=== PATIENT | female | born 1945 | race Caucasian/White ===

== ENCOUNTER 2022-09-11 12:45 | Outpatient (CLI) | payer MEDICARE, SELFPAY ==
[2022-09-11 13:20] LABS: Basophils Percent Auto 0.2 % (0.2-1.2); Eosinophils Percent Auto 0.7 % (0-4.4); Hematocrit 40.9 % (37.0-47.0); Hemoglobin 13.6 g/dL (12.0-15.0); Immature Granulocyte Absolute 0.01 K/mm3 (0.00-0.031); Immature Granulocyte Percent A 0.2 % (0-0.5); Lymphocytes Absolute Auto 1.17 K/mm3 (0.9-3.2); Lymphocytes Percent Auto 25.9 % (18.3-44.2); Mean Corpuscular HGB Conc 33.3 g/dl (32-36); Mean Corpuscular Hemoglobin 29.2 pg (26-34); Mean Corpuscular Volume 87.8 fl (80-100); Mean Platelet Volume 9.3 fl (7.4-10.4); Monocytes Absolute Auto 0.4 K/mm3 (0.1-0.6); Monocytes Percent Auto 8.6 % (2.6-8.5); Neutrophils Absolute Auto 2.9 K/mm3 (1.3-6.7); Neutrophils Percent Auto 64.4 % (45.5-73.1); Platelet Count Result 223 k/mm3 (150-375); Red Blood Count 4.66 M/mm3 (4.2-5.4); Red Cell Distribution Width 11.9 % (11.5-14.5); White Blood Count 4.5 K/mm3 (4.5-10.0)
[2022-09-11 13:38] LABS: Alanine Aminotransferase 21 U/L (6-35); Albumin Level 4.3 g/dL (3.5-5.1); Alkaline Phosphatase 111 U/L (38-126); Anion Gap 4 mmol/L (8-16); Aspartate Amino Transferase 29 U/L (14-36); Bilirubin,Total 1.6 mg/dL (0.2-1.3); Blood Urea Nitrogen 23 mg/dL (7-17); Calcium 8.8 mg/dL (8.4-10.2); Carbon Dioxide 31 mmol/L (22-30); Chloride 105 mmol/L (98-107); Cholesterol 221 mg/dL (0-200); Estimated Glomerular Filt Rate > 60; Glucose 100 mg/dL (65-110); HDL Direct 62 mg/dL; Potassium 3.9 mmol/L (3.4-5.0); Sodium 140 mmol/L (137-145); Triglycerides 80 mg/dL (<150)
[2022-09-11 13:42] LABS: Hemoglobin A1C 5.1 % (<5.7)
[2022-09-11 13:49] LABS: LDL Cholesterol Direct 121 mg/dL
[2022-09-11 14:15] LABS: Thyroid Stimulating Hormone Reflex 0.051 uIU/mL (0.465-4.68)
[2022-09-11 15:06] LABS: Free T4 Free Thyroxine Reflex 2.14 ng/dL (0.78-2.19)
[2022-09-11 15:55] LABS: Total Triiodothyronine (T3) 1.04 NG/ML (0.97-1.69)
== END 2022-09-11 12:46 | disposition home or self-care (01) ==
LOC: ANHLAB 12:50
PROVIDERS: PCP Family Medicine; Visit Provider Internal Medicine
DX: I48.91 Unspecified atrial fibrillation (principal); R07.9 Chest pain, unspecified; R79.9 Abnormal finding of blood chemistry, unspecified
CPT/HCPCS: 36415; 80053; 80061; 83036; 84439; 84443; 84480; 85025

== ENCOUNTER 2022-09-16 11:46 | Outpatient (CLI) | payer MEDICARE, SELFPAY ==
--- NOTE | 2022-09-16 12:10 | ECHO_ITS ---
Patient Info Name: Mariluz Wilkes Age: 77 years : 1945 Gender: Female Ht: 67 in Wt: 230 lbs BSA: 2.26 m2 HR: 75 bpm BP: 147 / 74 mmHg Heart Rhythm: Sinus Rhythm Technical Quality: Good Exam Date: 09/16/2022 12:38 PM Exam Location: [facility] Pulmonary Patient Status: Outpatient Admit Date: 09/16/2022 Staff Ordering Physician: Rickey Barros MD Directory Operator: Martha Boateng RDCS Attending Provider: Rickey Barros MD Referring Physician: Fiorella INFANTE; Exam Type: CA echo doppler color flow Study Info Indications R01.1 - Cardiac murmur, unspecified Complete two-dimensional, color flow and Doppler transthoracic echocardiogram is performed. Summary 1. Complete two-dimensional, color flow and Doppler transthoracic echocardiogram is performed. 2. Left ventricular chamber dimension is normal. 3. Left ventricular systolic function is normal, estimated at 65-70%. 4. Right ventricular chamber dimension is mildly enlarged. 5. Right ventricular systolic function is normal. 6. Left atrial chamber dimension is moderately enlarged. 7. Right atrial chamber dimension is mildly enlarged. 8. There is mild aortic valve sclerosis. 9. There is mild mitral valve regurgitation. 10. There is mild tricuspid valve regurgitation. Left Ventricle Left ventricular chamber dimension is normal. Left ventricular systolic function is normal, estimated at 65-70%. There is no increased left ventricular wall thickness. Right Ventricle Right ventricular chamber dimension is mildly enlarged. Right ventricular systolic function is normal. Left Atria Left atrial chamber dimension is moderately enlarged. Right Atria Right atrial chamber dimension is mildly enlarged. Atrial Septum Intact interatrial septum visualized by color flow imaging. Aortic Valve The aortic valve is probable trileaflet. There is mild aortic valve sclerosis. There is no aortic valve stenosis. There is trace aortic valve regurgitation. Pulmonic Valve The pulmonic valve is normal. Mitral Valve The mitral valve has normal leaflets. There is no mitral valve stenosis. There is mild mitral valve regurgitation. Tricuspid Valve There is no significant tricuspid valve stenosis. There is mild tricuspid valve regurgitation. Pericardium/Pleural The pericardium appears normal. There is no pericardial effusion. Inferior Vena Cava Normal inferior vena cava with >50% collapse upon inspiration consistent with normal right atrial pressure, 3 mmHg. Aorta The aortic root size at the sinus of Valsalva is normal. Left Ventricular Outflow Tract Name Value Normal LVOT 2D LVOT Diameter 2.0 cm LVOT Doppler LVOT Peak Gradient 6 mmHg LVOT Mean Gradient 4 mmHg LVOT VTI 31 cm LVOT VTI/AV VTI Ratio 0.8 LVOT Stroke Volume 94 ml LVOT CO 17.5 l/min LVOT CI 7.7 l/min/m2 Pulmonic Valve
== END 2022-09-16 11:47 | disposition home or self-care (01) ==
LOC: ANHCARD 11:48
PROVIDERS: PCP Family Medicine; Visit Provider Family Medicine
DX: R01.1 Cardiac murmur, unspecified (principal); I34.0 Nonrheumatic mitral (valve) insufficiency; I35.1 Nonrheumatic aortic (valve) insufficiency; I36.1 Nonrheumatic tricuspid (valve) insufficiency
CPT/HCPCS: 93306

== ENCOUNTER 2023-01-01 15:10 | Outpatient (CLI) | payer MEDICARE, SELFPAY ==
--- NOTE | ~2023-01-01 | MM_ITS ---
EXAMINATION: MM screening patricia BI w carlos HISTORY: Screening mammogram TECHNIQUE: Craniocaudal and mediolateral oblique 3-D tomosynthesis images were obtained and synthetic 2-D images were generated. CAD analysis was submitted and interpreted. COMPARISON: No prior mammogram is available for comparison at this institution. BREAST PARENCHYMAL COMPOSITION: The breasts are almost entirely fatty. FINDINGS: RIGHT BREAST: No suspicious mass, calcification, or architectural distortion are identified to sugges t malignancy. LEFT BREAST: There is possible architectural distortion in the middle third of the upper breast. IMPRESSION: 1. Possible left breast architectural distortion. 2. Additional mammographic views and possible breast ultrasound are recommended. BI-RADS Category 0: Incomplete: Needs additional imaging evaluation. Reviewed, dictated and finalized at location A. IMPRESSION: 1. Possible left breast architectural distortion. 2. Additional mammographic views and possible breast ultrasound are recommended . BI-RADS Category 0: Incomplete: Needs additional imaging evaluation.
== END 2023-01-01 15:11 | disposition home or self-care (01) ==
LOC: ANHIMG 15:15
PROVIDERS: PCP Family Medicine; Visit Provider Family Medicine
DX: Z12.31 Encounter for screening mammogram for malignant neoplasm of breast (principal); R92.8 Other abnormal and inconclusive findings on diagnostic imaging of breast
CPT/HCPCS: 77063; 77067

== ENCOUNTER 2023-08-31 11:10 | Outpatient (CLI) | payer MEDICARE, SELFPAY ==
[2023-08-31 11:53] LABS: Eosinophils Percent Auto 1.4 % (0-4.4); Hematocrit 42.6 % (37.0-47.0); Hemoglobin 13.9 g/dL (12.0-15.0); Immature Granulocyte Absolute 0.01 K/mm3 (0.00-0.031); Immature Granulocyte Percent A 0.3 % (0-0.5); Lymphocytes Absolute Auto 0.73 K/mm3 (0.9-3.2); Lymphocytes Percent Auto 24.8 % (18.3-44.2); Mean Corpuscular HGB Conc 32.6 g/dl (32-36); Mean Corpuscular Hemoglobin 29.8 pg (26-34); Mean Corpuscular Volume 91.2 fl (80-100); Mean Platelet Volume 9.8 fl (7.4-10.4); Monocytes Absolute Auto 0.3 K/mm3 (0.1-0.6); Monocytes Percent Auto 10.9 % (2.6-8.5); Neutrophils Absolute Auto 1.8 K/mm3 (1.3-6.7); Neutrophils Percent Auto 62.6 % (45.5-73.1); Platelet Count Result 186 k/mm3 (150-375); Red Blood Count 4.67 M/mm3 (4.2-5.4); Red Cell Distribution Width 12.1 % (11.5-14.5); White Blood Count 2.9 K/mm3 (4.5-10.0)
[2023-08-31 12:17] LABS: LDL Cholesterol Direct 133 mg/dL
[2023-08-31 12:18] LABS: Alanine Aminotransferase 15 U/L (6-35); Albumin Level 4.2 g/dL (3.5-5.1); Alkaline Phosphatase 102 U/L (38-126); Anion Gap 3 mmol/L (8-16); Aspartate Amino Transferase 28 U/L (14-36); Bilirubin,Total 1.4 mg/dL (0.2-1.3); Blood Urea Nitrogen 24 mg/dL (7-17); Carbon Dioxide 32 mmol/L (22-30); Chloride 105 mmol/L (98-107); Cholesterol 238 mg/dL (0-200); Estimated Glomerular Filt Rate > 60; Glucose 98 mg/dL (65-110); HDL Direct 65 mg/dL; Sodium 140 mmol/L (137-145); Triglycerides 94 mg/dL (<150)
[2023-08-31 12:21] LABS: Hemoglobin A1C 5.3 % (<5.7); Potassium 3.8 mmol/L (3.4-5.0)
[2023-08-31 12:22] LABS: Iron 84 ug/dL (37-170)
[2023-08-31 12:36] LABS: Percent Iron Saturation 27 % (20-50)
[2023-08-31 12:45] LABS: Free T4 Free Thyroxine 0.82 ng/mL (0.78-2.19)
== END 2023-08-31 11:11 | disposition home or self-care (01) ==
LOC: ANHLAB 11:16
PROVIDERS: PCP Family Medicine; Visit Provider Family Medicine
DX: D50.9 Iron deficiency anemia, unspecified (principal); E03.9 Hypothyroidism, unspecified; E78.2 Mixed hyperlipidemia; R73.01 Impaired fasting glucose
CPT/HCPCS: 36415; 80048; 80061; 80076; 82728; 83036; 83540; 83550; 84439; 84443; 85025

== ENCOUNTER 2023-11-13 12:19 | Outpatient (CLI) | payer MEDICARE, SELFPAY ==
--- NOTE | ~2023-11-13 | MR_ITS ---
EXAMINATION: MR brain/brain stem wo con DATE: 11/13/2023 12:57 INDICATION: Personal history of other healed physical injury. Loss of memory. TECHNIQUE: Magnetic resonance imaging (MRI) of the brain and brainstem was performed without intraven ous contrast. COMPARISON: None. FINDINGS: There are scattered areas of nonspecific increased T2-weighted signal intensity in the cere bral white matter. There is a chronic small right frontoparietal subdural hematoma with maximum thick ness of 4 mm. There is no acute ischemic infarct or abnormal mass lesion. The ventricles are normal i n size. The paranasal sinuses are clear. There are likely changes of ocular lens replacement surgerie s. There is a trace right mastoid effusion. IMPRESSION: 1. Chronic small right frontoparietal subdural hematoma with maximum thickness of 4 mm. 2. Mild nonspecific cerebral white matter disease, which likely represents chronic small vessel ische henri disease. Reviewed, dictated and finalized at location A. IMPRESSION: 1. Chronic small right frontoparietal subdural hematoma with maximum thickness of 4 mm. 2. 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
== END 2023-11-13 12:20 | disposition home or self-care (01) ==
LOC: ANHIMG 12:19
PROVIDERS: PCP Family Medicine; Visit Provider Psychiatry & Neurology Neurology
DX: G30.9 Alzheimer's disease, unspecified (principal); F02.818 Dementia in other diseases classified elsewhere, unspecified severity, with other behavioral disturbance; I62.03 Nontraumatic chronic subdural hemorrhage; R90.82 White matter disease, unspecified; Z87.828 Personal history of other (healed) physical injury and trauma
CPT/HCPCS: 70551

== ENCOUNTER 2024-12-13 16:20 | Outpatient (CLI) | payer MEDICARE, SELFPAY ==
--- NOTE | ~2024-12-13 | US_ITS ---
EXAMINATION: US carotid duplex BI DATE: 12/13/2024 17:34 CDT INDICATION: Memory loss TECHNIQUE: Grayscale, color Doppler, and pulsed Doppler images of the cervical carotid arteries were obtained. The degree of vessel stenosis is placed in one of the following categories: normal, <50%, 50-69%, >=7 0% but less than near-occlusion, near-occlusion, or total occlusion. Note that percent stenosis relative to normal distal artery lumen diameter is indirectly measured fro m velocity measurements as described originally by David, et al. Radiology 2003; 229:340-346 and upda juni by Jaciel Vasquez et al STROKE 2012;43(3);915-921. COMPARISON: None. FINDINGS: There is mild atherosclerosis of both carotid arteries. Peak systolic velocity (in cm/s) is detailed below RIGHT: Right common carotid artery (CCA): 68 cm/s. Right internal carotid artery (ICA) PSV: 86 cm/s. Right ICA end-diastolic velocity (EDV): 27 cm/s. Right ICA/CCA PSV ratio is 1.3. Right external carotid artery (ECA): 91cm/s. There is antegrade flow in the right vertebral artery LEFT: Left common carotid artery (CCA): 87 cm/s. Left internal carotid artery (ICA) PSV: 73 cm/s. Left ICA end-diastolic velocity (EDV): 26 cm/s. Left ICA/CCA PSV ratio is 0.8. Left external carotid artery (ECA): 77cm/s. There is antegrade flow in the left vertebral artery. IMPRESSION: 1. Less than 50% stenosis in the right internal carotid artery. 2. Less than 50% stenosis in the left internal carotid artery. Reviewed, dictated and finalized at location A.
--- OUTSIDE RECORDS SUMMARY | 2024-12-13 17:40 | XMS_ITS | Clinical Summary ---
Author Organization [address] Address [address] [place] [address] Care Team Providers Care Funding Specialist Name Role Phone Rickey Barros MD Primary Care Provider [phone] Allergies Active Allergy Reactions Criticality Noted Date Comments Escitalopram Urticaria Medium 03/04/2024 Medications cycloSPORINE (RESTASIS) 0.05 % ophthalmic emulsion 1 drop 2 (two) times a day Active ferrous gluconate (ferrous gluconate) 324 mg (37.5 mg of elemental iron) tablet Take 0.4321 tablets (140 mg total) by mouth daily Active lifitegrast (Xiidra) 5 % dropperette 1 Active houlswiq51-sdax-F mfolate-algal 27 mg iron-1.13 mg-581.92 mg capsule Take by mouth Active ferrous sulfate ER (SLOW IRON) 140 mg (45 mg of elemental iron) tablet Take 140 mg by mouth Active Eliquis 5 mg tabletIndications :atrial fibrillation Take 1 tablet (5 mg total) by mouth 2 (two) times a day 90 tablet 3 3 Active Synthroid 100 mcg tablet Take 1 tablet (100 mcg total) by mouth daily 4 Active memantine (NAMENDA) 10 mg tablet Take 1 tablet (10 mg total) by mouth 2 (two) times a day 4 Active Active Problems Problem Noted Date Diagnosed Date Other thrombophilia 07/10/2022 Atrial fibrillation 07/10/2022 Chest pain 07/10/2022 Primary osteoarthritis of both hips 04/21/2021 Primary osteoarthritis of both knees 04/21/2021 Left hip pain 04/21/2021 Left knee pain 04/21/2021 Sciatica of left side 04/21/2021 Immunizations Immunization Administration Dates Next Due Influenza, Quadrivalent, Spl it, Preservative Free, Intramuscular 05/26/2016 Medical History Medical History Date Comments Thyroid disease Family History Medical History Relation Name Comments Heart disease Father Relation Name Status Comments Father Social History Tobacco Use Types Packs/Day Years Used Date Smoking Tobacco: Never Smokeless Tobacco: Never Tobacco Cessation:Counseling Given: Not Answered Comments Unknown Sex and Gender Information Value Date Recorded Sex Assigned at Not on file 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 Gender Identity Not on file Sexual Orientation Not on file Obstetrics History Last Filed Vital Signs Vital Sign Reading Time Taken Comments Blood Pressure 110/64 04/06/2024 3:26 PM CDT Pulse 46 04/06/2024 3:26 PM CDT Temperature - - Respiratory Rate - - Oxygen Saturation 97% 04/06/2024 3:26 PM CDT Inhaled Oxygen Concentration - - Weight 86.2 kg (190 lb) 04/06/2024 3:26 PM CDT Height 167.6 cm (5' 6) 04/06/2024 3:26 PM CDT Body Mass Index 30.67 04/06/2024 3:26 PM CDT Plan of Treatment Health Maintenance Due Date Last Done Comments Depression Screening 1945 Fall Risk Assessment 1945 Hepatitis C Screening 1945 Osteoporosis Screening-Bone Density Scan 1945 DTaP/Tdap/Td Vaccine (1 - Tdap) 1957 Hepatitis B Screening 1964 Well Visit 65+ 2011 Zoster Vaccine (2 of 3) 04/23/2013 02/26/2013, 05/26 Covid-19 Vaccine (3 - 2023-2 5 season) 2024 09/03/2020, 08/01/2020 Influenza Vaccine (Season Ended) 2025 03/25/2020, 03/14/2018, 04/29/2017, Additional history exists Breast Cancer Screening-Mammogram Discontinued 013 Pneumococcal vaccine 65+ Completed 014, 02/26/2013, 05/13/2012 Insurance MEDICARE MEDICARE BLUE CROSS MEDICARE SUPPLEMENT Care Teams Funding Specialist Relationship Specialty Start Date End Date Rickey Barros MD [address] [address] PCP - General Family Medicine 06/01/22
--- OUTSIDE RECORDS SUMMARY | 2024-12-13 17:40 | XMS_ITS | Referral Summary ---
Author Organization [address] Address [address] [place] [address] Care Team Providers Care Technical Writer And Editor Name Role Phone Rickey Barros MD Primary Care Provider [phone] Allergies Active Allergy Reactions Criticality Noted Date Comments Escitalopram Urticaria Medium 03/04/2024 Medications cycloSPORINE (RESTASIS) 0.05 % ophthalmic emulsion 1 drop 2 (two) times a day Active ferrous gluconate (ferrous gluconate) 324 mg (37.5 mg of elemental iron) tablet Take 0.4321 tablets (140 mg total) by mouth daily Active lifitegrast (Xiidra) 5 % dropperette 1 Active hriwiccz99-lszw-B mfolate-algal 27 mg iron-1.13 mg-581.92 mg capsule [...] Quadrivalent, Spl it, Preservative Free, Intramuscular 05/26/2016 Social History Tobacco Use Types Packs/Day Years Used Date Smoking Tobacco: Never Smokeless Tobacco: Never Tobacco Cessation:Counseling Given: Not Answered Comments Unknown Sex and Gender Information Value Date Recorded Sex Assigned at Not on file 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 Gender Identity Not on file Sexual Orientation Not on file Last Filed Vital Signs Vital Sign Reading [...] 04/06/2024 3:26 PM CDT Plan of Treatment Not on file Insurance MEDICARE MEDICARE [facility] MEDICARE SUPPLEMENT Member Subscriber Plan / Payer (Ef fective 2017-) Name:Mariluz Wilkes Relation to Subscriber:Self Name:Mariluz Wilkes Payer ID:[id number] Type:COMMERCIAL Address: [address] [place] [id number] Care Teams Technical Writer And Editor Relationship Specialty Start Date End Date Rickey Barros MD [address] [address] PCP - General Family Medicine 06/01/22
--- OUTSIDE RECORDS SUMMARY | 2024-12-13 17:40 | XMS_ITS | Continuity of Care Document ---
Author Organization [facility] Address [address] [place] [address] [address] [place] [address] Phone Care Team Providers Care Splitter Head Name Role Phone Esteban OD, Davonte Unavailable Unavailable Advance Directives Directive Yes / No Effective Date File Name No Information Encounters Encounter Description Practice Location Reason(s) For Visit Diagnoses Date Provider Providers Copied on Encounter [facility], [address], [place], [place], [id number], [place] tel:[phone] [facility] No Information Nov- 1-200 5 Esteban OD Davonte. [address] , [address], [place], [address], [place]. tel:[phone] Family History Family Member Type Diagnosis Age At Onset No Information Payers Payer name Insurance type Covered alliance party ID Authoriza tion(s) No Information Social History Type Description Quantity Date Captured Comments Sex Female Smoking Status No Information Chief Complaint And Reason For Visit No Information Reason For Referral Reason For Referral No Information History Of Present Illness Encounter Date Complaint History Of Prese nt Illness No Information Functional Status Date Functional Assessmen t No Information Instructions Date Instruction Additional Infor mation No Information Assessments Type Assessment Date No Information Patient Care Teams Name Effective Dates (start - stop) Status Members No Information
--- OUTSIDE RECORDS SUMMARY | 2024-12-13 17:40 | XMS_ITS | Clinical Summary ---
Author Organization [email or web address] Address [address] [place] [address] Care Team Providers Care Model And Dye Person Name Role Phone Luciano Juarez MD Unavailable [phone] Aminta Ray APRN-HOTEL REGISTRATION CLERK Unavailable [phone] [facility],non-owned Affiliates and Associated Physician Practices is amultiple site organization consisting of ambulatory clinics and hospital sitesin [place], [place], [place] and [place]. This disclosure is being madepursuant to the Care Everywhere program and may not contain all information available regarding this patient. Last updated 18.[facility] Allergies Active Allergy Reactions Criticality Noted Date Comments Escitalopram Urticaria Medium 03/04/2024 Medications * Be aware that medications may not be up to date on this document. Alwaysverify current medications with the patient. Cyanocobalamin (VITAMIN B 12 PO) Take by mouth. Activ e ELIQUIS 5 MG tablet TAKE 1 TABLET BY MOUTH TWICE A DAY 60 tablet 10 0 Active XIIDRA 5 % opthalmic solution 1 Active ferrous gluconate 324 (38 Fe) MG tablet Take 324 mg by mouth once daily Active levothyroxine (Synthroid) 88 MCG tablet Take 1 (one) tablet by mouth daily before breakfast Active Active Problems Problem Noted Date Diagnosed Date Syncope and collapse 03/05/2024 Screening for condition 03/14/2018 BMI 45.0-49.9, adult 02/15/2018 Persistent atrial fibrillation 02/15/2018 Overview (02/15/2018): Carlos Puente MD 10/15/17 SSS (sick sinus syndrome) 02/15/2018 Overview (02/15/2018): Carlos Puente MD 10/15/17 M obesity 11/25/2016 S/P ablation of atrial fibrillation 09/23/2016 Overview (09/23/2016): Ablation 08/2016 -- PVI atrial fib ablation by Dr. Puente, with atrial flutter ablation (CTI and roof) PAF (paroxysmal atrial fibrillation) 03/14/2016 Overview (05/26/2017): 04/2016 -- Elective admission for Tikosyn load, with successful cardioversion to sinus. Echo 02/2016 -- LVEF 65%, mild LVH, mild MR, mild LAE Holter 06/2015 -- Atrial fibrillation with an average heart rate of 89 bpm. There were episodes of rapid ventricular rate of 183 bpm which were asymptomatic. Pharm SPECT Stress 03/2017 - Clinically/EKG negative. Images normal. EF 68%. Event monitor 03/2017 (2 wk Zio) - Baseline sinus at 59 bpm (range 37-104). AFib burden 9%. Rare PVCs. Symptoms of dyspnea and lightheadedness correlated w/ sinus. Symptoms of dyspnea at other times correlated w/ AFib/Flutter, as did sxs of fluttering, racing, RICHARDSON. Weight gain 07/12/2015 Dyspnea 07/12/2015 Hypercholesteremia 01/31/2009 Hypothyroidism 01/31/2009 Resolved Problems Problem Noted Date Diagnosed Date Resolved Date Atrial fibrillation 02/17/2013 06/16/20 16 Encounters Date Type Department Care Team Description 10/30/[address] [facility] - Care Coordination [address] [place] [address] Annette Sharp MA Outreach Preventive Care from Last 3 Months Immunizations Immunization Administration Dates Next Due INFLUENZA VACCINE, TRIV. (AF LURIA, FLUZONE TRIVALENT; 6MO+) (IIV3) 04/29/2017,03/18/2016,03/05/2011 FLU VACCINE TRI IIV3 SPLIT IM (FLUVIRIN) 012 INFLUENZA VACCINE 03/18/2016,05/02/2012 INFLUENZA VACCINE, HIGH-DOSE , QUADR. (FLUZONE HIGH-DOSE QUADRIVALENT; 65Y+), 0.7 ML (HD-IIV4) 03/25/2020,03/14/2018 INFLUENZA VACCINE, QUADR. (F LUZONE; FLULAVAL; FLUARIX; AFLURIA QUADRIVALENT; 6MO+), 0.5 ML (IIV4) 05/26/2016 PNEUMOCOCCAL PPSV23 05/13/2012 Pneumococcal Pcv13 Conj 02/26/2014,02/26/2013 ZOSTER VACCINE, LIVE 02/26/2013,05/26/2012 Family History Medical History Relation Name Comments Congenital Heart defect Father Heart Failure Paternal Grandmother Relation Name Status Comments Father Paternal Grandmother Social History Tobacco Use Types Packs/Day Years Used Date Smoking Tobacco: Never Smokeless Tobacco: Never Alcohol Use Standard Drinks/Week Comments Yes 0 (1 standard drink = 0.6 oz pur e alcohol) rare PHQ-2 Answer Date Recorded PHQ2 TOTAL SCORE 0 08/07/2021 Comments No Sex and Gender Information Value Date Recorded Sex Assigned at Not on file 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 Gender Identity Not on file Sexual Orientation Not on file Last Filed Vital Signs Vital Sign Reading Time Taken Comments Blood Pressure 118/76 03/05/2024 11:28 AM CDT Pulse 76 03/05/2024 3:00 AM CDT Temperature 36.5 C (97.7 F) 03/05/2024 8:00 AM CDT Respiratory Rate 20 03/05/2024 3:00 AM CDT Oxygen Saturation 95% 03/05/2024 11: 29 AM CDT Inhaled Oxygen Concentration - - Weight 111.5 kg (245 lb 12.8 oz) 2021 10:15 AM SHERIFFS DETECTIVE Height 170.2 cm (5' 7) 08/07/2021 10:1 5 AM SHERIFFS DETECTIVE Body Mass Index 38.5 08/07/2021 10:15 AM SHERIFFS DETECTIVE Plan of Treatment Health Maintenance Due Date Last Done Comments DTAP/TDAP/TD VACCINES (1 - Tdap) 1964 ZOSTER VACCINE (2 of 3) 04/23/2013 02/26/2013, 05/26 Respiratory Syncytial Virus (RSV) Vaccine Pt: or over 60 yrs (1 - 1-dose 75+ series) 2021 MEDICARE AWV 12 MONTHS 02/04/2022 02/04/2021, 01/30/2020 COVID-19 VACCINE ( season) 2024 02/12/2022, 06/13/2021, 09/03/2020, Additional history exists DEPRESSION SCREENING 06/28/2024 08/07/2021, 02/05/20 21 INFLUENZA VACCINE (Season Ended) 2025 03/25/2020, 03/14/2018, 04/29/2017, Additional history exists BONE DENSITY TESTING Completed 02/22/2013 PNEUMOCOCCAL VACCINE 50+ Completed 014, 02/26/2013, 05/13/2012 HEPATITIS B VACCINE Aged Out No longe r eligible based on patient's age to complete this topic HEPATITIS C SCREENING Discontinued HIB VACCINE Aged Out No longer eligi ble based on patient's age to complete this topic HPV VACCINE Aged Out No longer eligi ble based on patient's age to complete this topic MENINGOCOCCAL (Group B) VACCINE SHARED DECISION-MAKING Aged Out No longer eligible based on patient's age to complete this topic MENINGOCOCCAL GROUPS A/C/Y/W VACCINE Aged Out No longer eligible based on patient's age to complete this topic Procedures Procedure Name Priority Date/Time Associated Diagnosis Comments DEXA BONE DENSITY 2 SITES Routine 02/22/2013 2:17 PM CDT from Last 3 Months or Most Recently Relevant to Health Maintenance Results * DEXA BONE DENSITY 2 SITES (02/22/2013 2:17 PM CDT) Anatomical Region Laterality Modality Nuclear Medicine 02/22/2013 2:21 PM CDT Impressions 02/22/2013 2:22 PM CDT IMPRESSION:Normal bone marrow density Narrative 02/22/2013 2:22 PM CDT INDICATION:Bone density evaluation FEMUR: Left The bone marrow density is 1.074 g/cm2. Percentage of young normal mean is 107%. T score is 0.5 Percentage age-matched mean is 113% Z score is 1.0 Right The bone marrow density is 1.056 g/cm2. Percentage of young normal mean is 105%. T score is 0.4 Percentage age-matched mean is 111% Z score is 0.8 WHO classification:Normal LUMBAR spine: The bone marrow density is 1.259 g/cm2. Percentage of young normal mean is 107% T score is 0.7 Percentage of the age-matched mean is 112% Z score is 1.1 WHO classification:Normal Procedure Note Deric Hernandez MD - 02/22/2013 INDICATION:Bone density evaluation FEMUR: Left The bone marrow density is 1.074 g/cm2. Percentage of young normal mean is 107%. T score is 0.5 Percentage age-matched mean is 113% Z score is 1.0 Right The bone marrow density is 1.056 g/cm2. Percentage of young normal mean is 105%. T score is 0.4 Percentage age-matched mean is 111% Z score is 0.8 WHO classification:Normal LUMBAR spine: The bone marrow density is 1.259 g/cm2. Percentage of young normal mean is 107% T score is 0.7 Percentage of the age-matched mean is 112% Z score is 1.1 WHO classification:Normal IMPRESSION IMPRESSION:Normal bone marrow density Davonte Werner MD DEXA ORDERABLES Final Result from Last 3 Months or Most Recently Relevant to Health Maintenance Insurance MEDICARE [facility] MEDICARE [facility] Member Subscriber Plan / Payer (Ef fective 2017-Present) Name:Vaibhav Tong Relation to Subscriber:Self Name:Vaibhav Tong Payer ID:[id number] (NAIC) Type:PPO Address: [place] [phone] Advance Directives * DNR - IF PULSELESS NO CPR, NO SHOCK (Latest Code Status on File) Date Activated Date Inactivated Comments 03/05/2024 3:30 AM 03/05/2024 3:36 PM Question Answer Comments : DO NOT discontinue a ny active orders without asking attending physician. Care Teams Model And Dye Person Relationship Specialty [place] [address] [place] [address] [facility] [address] [place] [address] Cardiovascular Disease 02/17/13 Aminta Ray APRN-HEAVEN [address] [place], [place] [address] [address] [place] [address] Nurse Practitioner Family 02/04/21
== END 2024-12-13 16:21 | disposition home or self-care (01) ==
PROVIDERS: PCP Family Medicine; Visit Provider Psychiatry & Neurology Neurology
DX: R09.89 Other specified symptoms and signs involving the circulatory and respiratory systems (principal); I65.23 Occlusion and stenosis of bilateral carotid arteries
CPT/HCPCS: 93880